=== PATIENT | male | born 1955 | race Caucasian/White ===

== ENCOUNTER 2017-12-12 14:20 | Emergency (ER) | payer MEDICAID ==
[2017-12-12 14:28] VITALS: BP 163/87; PULSE 63; RESP 16; TEMP 97.6; O2SAT 100
--- NOTE | 2017-12-12 16:28 | C.PDOC ---
History Of Present Illness 62 y/o male presents to the ED for complaint of several month history of pain to the right knee, which shoots down into the ankle. Patient reports that the pain is worse when walking. Was seen by PMD and had outpatient Doppler ultrasound, showing calcifications in his legs but no DVT. He states pain has progressively worsened, with increased difficulty walking, prompting todays ED visit. Otherwise he denies any injury, numbness, weakness, rash, fever, or chills. Time Seen by Provider: 12/12/17 15:42 Chief Complaint (Nursing): Lower Extremity Problem/Injury History Per: Patient History/Exam Limitations: no limitations Onset/Duration Of Symptoms: Days Current Symptoms Are (Timing): Still Present Past Medical History Reviewed: Historical Data, Nursing Documentation, Vital Signs Vital Signs: Last Vital Signs Temp 97.6 F 12/12/17 14:26 Pulse 63 12/12/17 14:26 Resp 16 12/12/17 14:26 BP 163/87 H 12/12/17 14:26 Pulse Ox 100 12/12/17 14:26 Other Surgeries: Cataract surgery Family History: States: Unknown Family Hx - Social History Hx Tobacco Use: No Hx Alcohol Use: No Hx Substance Use: No - Immunization History Hx Tetanus Toxoid Vaccination: No Hx Influenza Vaccination: No Hx Pneumococcal Vaccination: No Review Of Systems Constitutional: Negative for: Fever, Chills Musculoskeletal: Positive for: Leg Pain (right knee pain shooting down to right ankle) Skin: Negative for: Rash, Lesions Neurological: Negative for: Weakness, Numbness, Incoordination, Other (tingling) Physical Exam - Physical Exam Appears: Non-toxic, No Acute Distress Skin: Warm, Dry, No Rash Head: Atraumatic, Normacephalic Eye(s): bilateral: Normal Inspection Oral Mucosa: Moist Neck: Normal ROM Chest: Symmetrical Respiratory: No Accessory Muscle Use Extremity: Normal ROM (and able to flex and extend the right knee to 180), No Tenderness (to right ankle or knee), No Calf Tenderness, Capillary Refill (less than 2 sec), No Deformity, No Swelling (to the right ankle or knee) Pulses: Left Dorsalis Pedis: Normal, Right Dorsalis Pedis: Normal Neurological/Psych: Oriented x3, Normal Speech, Normal Motor, Normal Sensation, Other (No focal deficits) Gait: Steady ED Course And Treatment O2 Sat by Pulse Oximetry: 100 (RA) Pulse Ox Interpretation: Normal Medical Decision Making Medical Decision Making: Plan: --Right knee x-ray --Right tib/fib x-ray --Toradol 15 mg IM X-ray findings reviewed with patient. On re-exam, the patient reports improvement of symptoms. Lungs are CTA, heart is RRR, abdomen is soft, non- tender and the patient is tolerating PO well. Follow up with the medical doctor within 1-2 days. Return if worsened. Disposition - Disposition Referrals: Benson Rose Jr., MD [Staff Provider] - Disposition: HOME/ ROUTINE Disposition Time: 17:00 Condition: STABLE Additional Instructions: Follow up with the medical doctor within 1-2 days, Return if worsened. Prescriptions: Acetaminophen [Tylenol] 325 mg PO Q6 PRN #30 tab PRN Reason: Pain, Mild (1-3) Naproxen 375 mg PO BID #20 tablet Instructions: Peripheral Vascular (Arterial) Disease (DC) Forms: [employer] (Tajik) - Clinical Impression Clinical Impression: Leg pain - PA / BOARDING SPECIALIST / Resident Statement MD/DO has reviewed & agrees with the documentation as recorded. - Scribe Statement The provider has reviewed the documentation as recorded by the Scribe (Radha Kessler) All medical record entries made by the Scribe were at my direction and personally dictated by me. I have reviewed the chart and agree that the record accurately reflects my personal performance of the history, physical exam, medical decision making, and the department course for this patient. I have also personally directed, reviewed, and agree with the discharge instructions and disposition.
--- NOTE | 2017-12-12 17:40 | RAD ---
Date of service: 12/12/2017 PROCEDURE: Radiographs of the right tibia and fibula. HISTORY: Pain x several months COMPARISON: Correlation made with concurrent radiographs of the right knee. TECHNIQUE: Frontal and lateral views obtained. FINDINGS: BONES: No fracture or destructive lesion. JOINT SPACES: Unremarkable. OTHER FINDINGS: Soft tissues appear unremarkable without evidence of subcutaneous emphysema or radiopaque foreign bodies. IMPRESSION: No evidence of acute displaced fracture nor dislocation. The osseous structures appear intact. No cortical destructive changes seen.
--- NOTE | 2017-12-12 17:44 | RAD ---
Date of service: 12/12/2017 PROCEDURE: Right Knee Radiographs. HISTORY: Pain for several months COMPARISON: None. FINDINGS: BONES: Normal. No fracture. JOINTS: Normal. No osteoarthritis. JOINT EFFUSION: Suprapatellar joint effusion. OTHER FINDINGS: None. IMPRESSION: No evidence of acute displaced fracture nor dislocation. Trace suprapatellar joint effusion
== END 2017-12-12 17:17 | disposition home or self-care (01) ==
LOC: C.ER 14:20
DX: M79.604 Pain in right leg (principal)
CPT/HCPCS: 73562; 73590; 96372; 99283; J1885

== ENCOUNTER 2017-12-16 15:43 | Emergency (ER) | payer MEDICAID ==
[2017-12-16 15:50] VITALS: BP 158/78; PULSE 71; RESP 19; TEMP 97.8; O2SAT 98
--- NOTE | 2017-12-16 17:06 | C.PDOC ---
History Of Present Illness Patient presents to ED c/o right lower leg pain for the past several months that has been recently worsening. During previous ED visit, patient has normla Xrays of right knee and tib/fib, and prior to that has normal outpatient venous doppler. Patient was seen by vascular surgeon Dr. Lloyd, and given Rx for outpatient arterial doppler. He denies chest pain, SOB, cough, fever, sensory changes, falls/injuries. Time Seen by Provider: 12/16/17 15:53 Chief Complaint (Nursing): Lower Extremity Problem/Injury History Per: Patient History/Exam Limitations: no limitations Onset/Duration Of Symptoms: Persistent Severity: Mild Past Medical History Reviewed: Historical Data, Nursing Documentation, Vital Signs Vital Signs: Last Vital Signs Temp 97.8 F 12/16/17 15:46 Pulse 71 12/16/17 15:46 Resp 19 12/16/17 15:46 BP 158/78 H 12/16/17 15:46 Pulse Ox 98 12/16/17 15:46 - Medical History PMH: No Chronic Diseases Family History: States: No Known Family Hx - Social History Hx Tobacco Use: No Hx Alcohol Use: No Hx Substance Use: No - Immunization History Hx Tetanus Toxoid Vaccination: No Hx Influenza Vaccination: No Hx Pneumococcal Vaccination: No Review Of Systems Constitutional: Negative for: Fever, Chills Cardiovascular: Negative for: Chest Pain, Palpitations Respiratory: Negative for: Shortness of Breath Gastrointestinal: Negative for: Nausea, Vomiting Musculoskeletal: Positive for: Leg Pain Skin: Negative for: Rash Neurological: Negative for: Weakness, Numbness, Headache, Dizziness Physical Exam - Physical Exam Appears: Well, Non-toxic, In Acute Distress (in mild to moderate pain) Skin: Normal Color, Warm, Dry, No Rash Oral Mucosa: Moist Cardiovascular: Rhythm Regular Respiratory: Normal Breath Sounds, No Rales, No Rhonchi, No Wheezing Gastrointestinal/Abdominal: Normal Exam, Bowel Sounds, Soft, No Tenderness Extremity: Capillary Refill (< 2 sec all digits ), Other (mild diffuse TTP at right knee and lower leg, no swelling/erythema, no wounds, no rashes) Pulses: Left Dorsalis Pedis: Normal, Right Dorsalis Pedis: Normal Neurological/Psych: Oriented x3, Normal Sensation ED Course And Treatment O2 Sat by Pulse Oximetry: 98 (RA) Pulse Ox Interpretation: Normal Progress Note: Patient given IM toradol. When reassessed, pain had improved and patient was able to ambulate normally. He was instructed to have outpatient arterial doppler done as recommended by his surgeon, and to follow up with Dr. Lloyd. Patient understands he should return to ED if symptoms worsen. Disposition Counseled Patient/Family Regarding: Diagnosis, Need For Followup, Rx Given - Disposition Referrals: Иван Lloyd MD [Staff Provider] - Bernie Block MD [Staff Provider] - Disposition: HOME/ ROUTINE Disposition Time: 17:00 Condition: STABLE Additional Instructions: HAVE OUTPATIENT ARTERIAL DOPPLER DONE TUESDAY USE PAIN MEDICATIONS NEEDED RETURN TO ER IF SYMPTOMS WORSEN Prescriptions: Naproxen [Naprosyn] 1 tab PO BID PRN #25 tab PRN Reason: Pain traMADol [Ultram] 50 mg PO BID PRN #12 tab PRN Reason: pain Forms: [facility] (Mozambican) Print Language: LUXEMBOURGISH - Clinical Impression Clinical Impression: Chronic pain of right lower extremity
== END 2017-12-16 17:20 | disposition home or self-care (01) ==
LOC: C.ER 15:43
DX: G89.29 Other chronic pain (principal); M79.661 Pain in right lower leg
CPT/HCPCS: 96372; 99284; J1885